=== PATIENT | male | born 1990 | race Caucasian/White ===

== ENCOUNTER 2017-05-13 00:55 | Inpatient (IN) ==
[2017-05-13] MEDS ORDERED: traZODone 50 MG TABLET PO PRN (02:50)
[2017-05-13] MEDS ORDERED: *HR* LORazepam 2 MG/ML VIAL IM PRN (02:50)
[2017-05-13] MEDS ORDERED: Haloperidol Lactate 5 MG/ML VIAL IM PRN (02:50)
[2017-05-13] MEDS ORDERED: hydrOXYzine pamoate 25 MG CAPSULE PO PRN (02:50)
[2017-05-13] MEDS ORDERED: Mag Hydrox/Al Hydrox/Simeth 30 ML UDC PO PRN (02:50)
[2017-05-13] MEDS ORDERED: *HR* LORazepam 1 MG TABLET PO PRN (02:50)
[2017-05-13] MEDS ORDERED: MOM Conc 10 ML UD.LIQ PO PRN (02:50)
[2017-05-13] MEDS ORDERED: Acetaminophen 325 MG TABLET PO PRN (02:50)
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
[2017-05-13] MEDS ORDERED: FLUoxetine 20 MG CAPSULE PO SCH (09:00)
[2017-05-13] MEDS ORDERED: FLUoxetine 20 MG CAPSULE PO ONE (10:26)
[2017-05-13] MEDS: FLUoxetine 20 MG CAPSULE PO SCH (10:52)
[2017-05-14] MEDS: FLUoxetine 20 MG CAPSULE PO SCH (08:44)
[2017-05-14] MEDS ORDERED: FLUoxetine HCl Oral Soln 20 MG/5 ML UDC PO ONE (10:21)
--- NOTE | 2017-05-14 10:54 | Psychiatry Progress Note ---
Date of Encounter: 05/14/17 Time of Encounter: : Subjective Interval history: Patient seen and interviewed. History and physical examination reviewed. Patient is withdrawn and isolated. He is minimizing his symptoms and reporting that everything is good however he appears extremely distressed and dysphoric. Tolerating medications fairly well. I encouraged the patient to attend groups and participate in activities. I also explored the option of having a family session and patient is agreeable. We will reach out to the family and schedule family session. Review of Systems Psychiatric: Reports: depression, anxiety Objective: Exam Patient orientation: Yes Person, Yes Time, Yes Place Level of alertness: Alert Patient appearance: Appropriate, Well Groomed Behavior: anxious Psychomotor activity: Normal Eye contact: Maintains Eye Contact Mood description: Euthymic/stable Affect description: constricted, dysphoric, incongruent with mood Speech pattern: Normal rate, Normal rhythm, Normal tone Speech volume: Normal Thought process: Linear, Goal Oriented Thought content: No Suicidal ideation, No Homicidal ideation Perceptual disturbances: No Auditory hallucinations, No Visual hallucinations Judgment: Limited Insight: Minimal Results - Vital Signs Vital Signs: Temp Pulse Resp BP 97.7 F 83 16 119/75 05/14/17 09:00 05/14/17 09:00 05/14/17 09:00 05/14/17 09:00 Assessment and Plan (1) Major depressive disorder, recurrent episode Current visit: Yes Status: Acute Plan: Continue hospitalization, Close observation, Suicide Precautions per unit protocol, Encourage participation in unit milieu, Group Therapy, Monitor sleep, Monitor appetite Additional Plan: We will continue to monitor patient since he is minimizing his symptoms. We will also schedule a family session prior to patient's discharge. We will continue the current regime of medication Risks, benefits, side effects, alternatives discussed w/pt: Yes Patient agreeable to treatment: Yes Qualifiers: Major depression episode severity: moderate Qualified Code(s): F33.1 - Major depressive disorder, recurrent, moderate Consult Discharge Plan - Plan [facility]/19/17 9:00 am (The above appointment is with Delia for mental health counseling services. You will also see Clare Maldonado for outpatient psychiatric assessment and medication management services on the same day, 05/19/2017, at 10:00 AM in the clinic. You then have another appointment to see Delia for mental health counseling services on 05/26/2017 at 7:30am as well.) Coral Hendrix, TERRENCE [Advanced Practice Nurse] - 05/30/17 8:00 am (The above appointment is with Coral Hendrix for primary health care and medication management services. Please arrive 10 minutes early to complete the check-in process. Please also bring your insurance card, photo ID, and all medications in their original bottles to this appointment. If you are unable to keep this appointment, 24 hour business notice of cancellation is expected. If you need to be seen sooner, you may contact the office. )
[2017-05-15] MEDS: FLUoxetine 20 MG CAPSULE PO SCH (09:57)
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
[2017-05-16] MEDS: FLUoxetine 20 MG CAPSULE PO SCH (09:15)
[2017-05-16 11:36] VITALS: BP 116/69
--- NOTE | 2017-05-16 13:53 | Discharge Summary ---
Date of Encounter: 05/16/17 Time of Encounter: 13:49 Medications - Discharge Medications Prescriptions: FLUoxetine HCl [Prozac] 40 mg PO DAILY #60 capsule FLUoxetine HCl [Prozac] 40 mg PO DAILY #60 capsule 05/16/17 [Rx] 3 Allergy/AdvReac Type Severity Reaction Status Date / Time No Known Drug Allergies Allergy none Verified 05/13/17 02:49 Provider Date of admission: 05/13/17 02:33 Primary care physician: Coral Hendrix Discharging clinician: Ezekiel Camacho Assessment and Plan - Patient/Caregiver Discharge Instructions Activity: resume usual activities as tolerated Diet: regular diet - Follow up Plan [facility] up with: [facility] [Outside] - 05/19/17 9:00 am (The above appointment is with Delia for mental health counseling services. You will also see Clare Maldonado for outpatient psychiatric assessment and medication management services on the same day, 05/19/2017, at 10:00 AM in the clinic. You then have another appointment to see Delia for mental health counseling services on 05/26/2017 at 7:30am as well.) Coral Hendrix, SEAT COVER MAKER [Advanced Practice Nurse] - 05/30/17 8:00 am (The above appointment is with Coral Hendrix for primary health care and medication management services. Please arrive 10 minutes early to complete the check-in process. Please also bring your insurance card, photo ID, and all medications in their original bottles to this appointment. If you are unable to keep this appointment, 24 hour business notice of cancellation is expected. If you need to be seen sooner, you may contact the office. ) Functional capacity at discharge: independent ambulation Overall status at discharge: Stable Disposition: Home, Self-Care Hospital Course Hospital course: Mr. Macedo is a 26 year old male admitted for suicidal ideation. For details admission please see H&P On the unit patient medication were reviewed , his fluoxetine was increased to 40 mg daily. Patient responded well to medication and reported improved sleep and less depression. He was seclusive to his room most of the time and did not interact with peers and staff. 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 on discharge patient was medically stable compliant with medication tolerating medication without side effects, denied any suicidal thoughts show an improvement insight. His discharge plans were completed by social service director including follow-up appointments for counseling and medication. - Time Spent with Patient Total time spent providing and/or coordinating discharge services: Greater than 30 minutes Quality - Multiple Antipsychotics Patient discharged on 2 or more antipsychotic medications: No Procedures - Procedures Procedures: Medication Management, Crisis Stabilization, Supportive Therapy, Group Therapy, Psychoeducational Therapy Mental Status Exam - Mental Status Exam Patient orientation: Yes Person, Yes Time, Yes Place Level of alertness: Alert Patient appearance: Appropriate, Well Groomed Behavior: calm, cooperative, guarded Psychomotor activity: Normal Eye contact: Maintains Eye Contact Mood description: Euthymic/stable Affect description: congruent with mood, full range Speech pattern: Normal rate, Normal rhythm, Normal tone Speech Volume: Normal Thought process: Linear, Goal Oriented Thought Content: No Suicidal ideation, No Homicidal ideation, No Overt delusions Perceptual Disturbances: No Auditory hallucinations, No Visual hallucinations Judgment: Limited Insight: Partial
== END 2017-05-16 15:35 | disposition home or self-care (01) | DRG 751 ==
LOC: SUATTDRO 02:33 → 1ANU 02:33
PROVIDERS: ADMIT Student in an Organized Health Care Education/Training Program; ATTEND Psychiatry & Neurology Psychiatry